=== PATIENT | male | born 2000 | race Caucasian/White ===

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

== ENCOUNTER 2025-04-22 14:37 | Emergency (ER) | payer OTHER ==
[~2025-04-22] VITALS: Ht 167.6 cm; Wt 59.1 kg
[2025-04-22 14:39] VITALS: BP 123/78; PULSE 78; RESP 16; O2SAT 98
--- NOTE | 2025-04-22 15:30 | Physician Documentation ---
History of Present Illness ~ Chief Complaint: Rash Stated Complaint: POISON OAK Time Seen by MD: 15:17 OK to notify your PCP?: Yes Primary Medical Doctor: Bravo Source: patient Mode of Arrival: POV Exam Limitations: no limitations HPI 25-year-old male presents with rash to bilateral ankles, right calf right buttocks, right low back after being exposed to poison oak yesterday. 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 He tried using technu and calamine lotion at home with no relief Medication Reconciliation Allergies: Coded Allergies: No Known Allergies (Unverified , 04/22/25) Scheduled Clobetasol Propionate/Emoll (Clobetasol Emollient 0.05% Crm), 1 APPLIC TOP Q12H Ibuprofen (Motrin), 3 TAB.CHEW PO q8 Past Medical History Past Medical History: No Pertinent History Past Surgical History: no surgical history Alcohol Use: None Drug Use: none Lives with: Mother, Father Lives In: Home Occupation: student Review of Systems All Other Systems at this time: Reviewed and Negative Physical Exam Vital Signs: RN Vital Signs have been reviewed: Yes, Temperature: 98.6, Source: Temporal, Heart Rate: 78, Respiratory Rate: 16, BP: 123/78, Pulse Oximetry: 98, Weight: 59.090 Oxygen Flow Rate: 0 Pulse Oximetry Reflects: adequate oxygenation Physical Exam General: Alert, no apparent distress. HEENT: PERRL, EOMI, no injection, moist mucous membranes. Neck: Full range of motion. Respiratory: Lungs clear, no respiratory distress. Chest: No accessory muscle use. Cardiovascular: Regular rate and rhythm, no murmurs. Gastrointestinal: Soft, nontender, nondistended. Bowels sounds present. Extremities: Normal range of motion, no deformity. Neurologic: Oriented x4. Psychiatric: Normal mood and affect. Skin: Normal color, warm and dry. Small erythema, raised rash without blistering to bilateral ankles, right calf right buttocks, right low back. Progress Results/Orders Results/Orders Completed Orders - CHARLOTTE PLATA PLUMBER'S ASSISTANT Triamcinolone Acet 40mg/Ml Inj (Kenalog- (04/22/25 15:30) Clobetasol Propionate Oint (Clobetasol P (04/22/25 15:30) Vital Signs 04/22/25 14:39 Temp 98.6 Pulse 78 Resp 16 B/P (MAP) 123/78 Pulse Ox 98 O2 Flow Rate 0 Medical Decision Making Findings 5-year-old male presents with small rashes to his bilateral ankles, right calf right buttocks and right low back. The rashes are red and raised but do not appear to be blistering yet. We discussed the difference between doing a Kenalog injection versus a prednisone taper pack versus topical medication. [place] and does not want to have a bunch of extra prednisone pills to carry with him. I discussed the risks and benefits of all treatment options, as giving a Kenalog injection may work great for the 1st few days but the rash may come back with a vengeance afterward prednisone medication anyways. The shared decision-making, he is opting for the Kenalog injection today and be discharged with the clobetasol ointment to product picker from the pharmacy as this is easier for him to carry in his luggage. Has been using the calamine lotion which I urged him to continue doing so. He did have not to scratch the rash as this can cause a bacterial secondary infection. He has been urged to follow up with his primary care provider in the next 3 days and return to any emergency department for any new or worsening symptoms. Differential Dx:Considerations: Include: Drug reaction, Erythema multiforme, Erysipelas, Herpes simplex, Impetigo, Molluscum contagiosum, Pityriasis rosea, Psoriaisis, Rosacea Departure Disposition: 01 HOME / SELF CARE / HOMELESS Impression: Primary Impression: Contact dermatitis Condition: Stable Discharge Instructions: Contact Dermatitis Additional Instructions: You has been given a Kenalog injection but if the rash gets worse in 3 days with the ointment being applied twice a day, you may need to start a prednisone taper pack. Follow up with her primary care doctor in the next 3 days and return to any local emergency department if you have any new or worsening symptoms. Continue to use the calamine lotion for relief as well. Please do not scratched your rash as this can cause a bacterial secondary infection requiring antibiotics. Referrals: NO PRIMARY CARE PROVIDER (PCP) Prescriptions Clobetasol Propionate/Emoll (Clobetasol Emollient 0.05% Crm) 0.05 % Cream..g. 1 APPLIC TOP Q12H for 15 Days, #60 GM 0 Refills Prov: CHARLOTTE PLATA 04/22/25 Education Educated: Patient Educated regarding: diagnosis, treatment, prognosis, need for follow up Additional Comment Medical Screen Exam This patient recieved a medical screening examination. After reviewing the individual's medical complaints with presenting symptoms and performing an appropriate physical examination, it was determined that no immediate life- threatening emergency medical condition is present. This individual is also not a women having contractions. Signature Scribe Signature: . Attestation: Scribed for Charlotte Plata by Charlotte Arechiga NP . 04/22/25 15:44 CHARLOTTE PLATAP Apr 22, 2025 15:29
[2025-04-22] MEDS ORDERED: CLOB15CR TOP (15:37)
[2025-04-22] MEDS: triamcinolone acetonide 40mg/ml inj IM ONE (15:43)
[2025-04-22] MEDS: clobetasol propionate ointment 15gm TP STA (15:48)
[2025-04-22 15:53] VITALS: TEMP 98.6
== END 2025-04-22 15:51 | disposition home or self-care (01) ==
LOC: ER 14:38
DX: L23.7 Allergic contact dermatitis due to plants, except food (principal)
CPT/HCPCS: 96372; 99283; J3301